=== PATIENT | male | born 1965 | race Hispanic/Latino ===

== ENCOUNTER 2020-06-07 09:44 | Emergency (ER) | payer OTHER ==
[~2020-06-07] VITALS: Ht 175.3 cm; Wt 96.6 kg
[~2020-06-07 09:44] MED LIST: COZAAR50 MG PO; DOK250 MG PO; EFFEXOR XR150 MG PO; ESCITALOPRAM OXA5 MG PO; FLOVENT DISKUS50 MCG INH; HYDROXYZINE HCL50 MG PO; MECLIZINE HCL25 MG PO; MIRTAZAPINE15 MG PO; MOBIC7.5 MG PO; NAPROXEN500 MG PO; VENTOLIN HFA18 GM INH
[2020-06-07] MEDS ORDERED: LIPITOR40 MG PO (10:15)
[2020-06-07] MEDS ORDERED: CHLORTHALIDONE25 MG PO (10:15)
[2020-06-07] MEDS ORDERED: GLIPIZIDE ER5 MG PO (10:16)
[2020-06-07] MEDS ORDERED: OMEPRAZOLE20 MG PO (10:16)
[2020-06-07] MEDS ORDERED: MIRALAX17 GM PO (10:17)
[2020-06-07] MEDS ORDERED: ALL DAY ALLERGY10 M3 PO (10:18)
[2020-06-07] MEDS ORDERED: EFFEXOR XR150 MG PO (10:18)
[2020-06-07] MEDS ORDERED: GLUCOPHAGE500 MG PO (10:18)
[2020-06-07] MEDS ORDERED: ALLERGY MEDICAT25 MG PO (10:28)
== END 2020-06-07 13:30 | disposition home or self-care (01) ==
LOC: ED 09:44
DX: K40.90 Unilateral inguinal hernia, without obstruction or gangrene, not specified as recurrent (principal); R30.0 Dysuria; E11.9 Type 2 diabetes mellitus without complications; Z88.1 Allergy status to other antibiotic agents; Z79.899 Other long term (current) drug therapy; Z79.84 Long term (current) use of oral hypoglycemic drugs
CPT/HCPCS: 74018; 81001; 87491; 87591; 99283-25

== ENCOUNTER 2020-08-26 11:43 | Emergency (ER) | payer OTHER ==
[~2020-08-26] VITALS: Ht 175.3 cm; Wt 96.2 kg
[~2020-08-26 11:43] MED LIST changes: +ALL DAY ALLERGY10 M3 PO; +ALLERGY MEDICAT25 MG PO; +CHLORTHALIDONE25 MG PO; +GLIPIZIDE ER5 MG PO; +GLUCOPHAGE500 MG PO; +LIPITOR40 MG PO; +MIRALAX17 GM PO; +OMEPRAZOLE20 MG PO
== END 2020-08-26 14:53 | disposition home or self-care (01) ==
LOC: ED 11:43
DX: M54.5 Low back pain (principal); G57.12 Meralgia paresthetica, left lower limb; E11.9 Type 2 diabetes mellitus without complications; Z88.1 Allergy status to other antibiotic agents; Z79.899 Other long term (current) drug therapy; Z79.84 Long term (current) use of oral hypoglycemic drugs
CPT/HCPCS: 74176; 80053; 81001; 85025; 85379; 99284-25

== ENCOUNTER 2021-05-04 15:57 | Emergency (ER) | payer OTHER ==
[~2021-05-04] VITALS: Ht 175.3 cm; Wt 96.0 kg
--- NOTE | 2021-05-06 17:37 | EKG ---
[facility] [address] [facility] [place], [place] [address] Signed Normal sinus rhythm Incomplete right bundle branch block Nonspecific T wave abnormality Abnormal ECG No previous ECGs available Confirmed by NILAM KAYE DO ([id number]) on 05/06/2021 5:37:15 PM Electronically Signed By: NILAM KAYE DO 05/06/21 1737 PATIENT NAME: FERMÍN PHANI MAGUIRE Electrocardiogram DATE OF : 63 PHYSICIAN: NILAM KAYE DO REPORT #: [id number] REPORT IS CONFIDENTIAL AND NOT TO BE RELEASED WITHOUT AUTHORIZATION
== END 2021-05-04 21:56 | disposition home or self-care (01) ==
LOC: ED 15:57
DX: R55 Syncope and collapse (principal); R10.11 Right upper quadrant pain; E11.9 Type 2 diabetes mellitus without complications; Z88.1 Allergy status to other antibiotic agents; Z79.899 Other long term (current) drug therapy; Z79.84 Long term (current) use of oral hypoglycemic drugs
CPT/HCPCS: 76705; 80053; 83690; 83735; 84484; 85025; 93005; 93010; 96374; 99284-25; J1885; J7030

== ENCOUNTER 2022-12-20 12:00 | Day surgery (SDC) | payer OTHER | END 2022-12-20 13:39 | disposition home or self-care (01) | LOC: DS 12:00 | PROC: 0DJD8ZZ Inspection of Lower Intestinal Tract, Via Natural or Artificial Opening Endoscopic (ICD-10-PCS; principal; 2022-12-20) | DX: Z12.11 Encounter for screening for malignant neoplasm of colon (principal); R10.2 Pelvic and perineal pain; R59.0 Localized enlarged lymph nodes ==